=== PATIENT | female | born 1995 | race Caucasian/White ===

== ENCOUNTER 2017-03-10 20:28 | Emergency (ER) | payer MEDICAID, OTHER ==
[~2017-03-10] VITALS: Ht 172.7 cm; Wt 184.0 kg
[2017-03-10 20:50] VITALS: Ht 172.7 cm; Wt 184.0 kg
[2017-03-10] MEDS ORDERED: IBUPROFEN 600 MG TAB PO ONE (22:00)
--- NOTE | 2017-03-10 22:03 | ERD ---
ER Documentation Chief Complaint Date/Time DATE: 03/10/17 TIME: 22:02 Chief Complaint Right ankle pain x1 day, no fall HPI This is a 21-year-old female presents to the ER with right ankle pain that started 3 days ago when she stepped wrong onto her ankle while going down stairs. Patient states that now she has developed severe ankle pain is unable to walk on her foot. Pain is described as throbbing in quality, worse whenever she puts any weight on it or whenever she moves her ankle. She denies any numbness or tingling of the ankle. Patient has not taken any medication for the ankle pain however she did put on an ankle splint which did help with the pain. ROS 12 point review of systems was done, all negative except per HPI. Medications Home Meds Active Scripts Ibuprofen* (Motrin*) 600 Mg Tab, 600 MG PO Q6, #30 TAB Prov:CORNELIA GALARZA 03/10/17 Allergies Allergies: Coded Allergies: No Known Allergy (Unverified , 03/10/17) PMhx/Soc Medical and Surgical Hx: pt denies Medical Hx, pt denies Surgical Hx Hx Alcohol Use: No Hx Tobacco Use: No Smoking Status: Never smoker Physical Exam Vitals Vital Signs Date Time Temp Pulse Resp B/P Pulse Ox O2 Delivery O2 Flow Rate FiO2 03/10/17 20:50 99.4 97 20 151/74 98 Physical Exam GENERAL: The patient is well developed and appropriate for usual state of health , in no apparent distress. HEENT: Atraumatic CHEST: Clear to auscultation bilaterally. There are no rales, wheezes or rhonchi. HEART: Regular rate and rhythm. No murmurs, clicks, rubs or gallops. EXTREMITIES: Ankle-patient is not able to bear weight and ambulate without any pain. right ankle is without obvious asymmetry or deformity when compared to the right ankle. Patient can flex/ext, invert/janelle ankle. No obvious surface trauma, ecchymosis. bony tenderness to the lateral malleolus. Anterior talofibular ligament, posterior talofibular ligament, calcaneofibular ligament NT and without swelling. Not tender or deformity of the midfoot or over the proximal fifth metatarsal, good dorsalis pedis and posterior tibial pulses and sensation to light touch is normal. Talar tilt test is negative for ligament laxity to valgus or varus stress. Negative anterior drawer.. Peroneal nerve is intact with strong eversion and plantarflexion. Negative squeeze test. Knee: Full and non painful ROM, not TTP. NEURO: Alert and oriented SKIN: There is no apparent rash or petechia. The skin is warm and dry. Results 24 hrs Current Medications Medications (Trade) Dose Ordered Sig/Susana Route PRN Reason Start Time Stop Time Status Last Admin Dose Admin Ibuprofen (Motrin) 600 mg ONCE ONCE PO 03/10/17 22:00 03/10/17 22:01 DC 03/10/17 21:39 [place] [id number] Radiology Main Line: [phone] DIAGNOSTIC IMAGING REPORT Patient: DANIELA AMAYA : 1995 Age: 21 Sex: F MR #: [id number] DOS: 03/10/17 0000 Ordering MD: CORNELIA GALARZA. PA-C Location: [facility] Room/Bed: PROCEDURE: X-ray right ankle. CLINICAL INDICATION: Right ankle pain. TECHNIQUE: 3 views right ankle. COMPARISON: None FINDINGS: Mild soft tissue swelling over the bilateral ankle, greater medially. Small plantar calcaneal enthesophyte. No acute fracture. IMPRESSION: No acute fracture. RPTAT: [facility] Physician Litzy Date Time Electronically viewed and signed by Physician Litzy on 03/10/2017 23:22 RS/ CC: CORNELIA GALARZA Procedures/MDM Differential diagnosis includes but is not limited to ankle sprain, ankle fracture, Achilles tendon rupture, proximal fibula fracture, distal fibula avulsion fracture, bimalleolar or trimalleolar fracture, peroneal nerve injury, acute compartment syndrome. This is likely an ankle sprain there is no evidence of fracture dislocation on x-ray. Patient is neurovascularly intact and likely has pain secondary to sprain. Suspicion for acute compartment syndrome is low. Patient will be sent home with ibuprofen. She was told to continue using her ankle splint. Patient is to follow-up with her primary care doctor within 1-2 days or return to ER sooner if symptoms worsen. My medical decision making shared with the patient she understands and agrees with plan. Departure Diagnosis: Primary Impression: Ankle sprain Condition: Stable CORNELIA GALARZA Mar 10, 2017 22:03
--- NOTE | 2017-03-10 23:23 | RADRPT ---
PROCEDURE: X-ray right ankle. CLINICAL INDICATION: Right ankle pain. TECHNIQUE: 3 views right ankle. COMPARISON: None FINDINGS: Mild soft tissue swelling over the bilateral ankle, greater medially. Small plantar calcaneal enthe sophyte. No acute fracture. IMPRESSION: No acute fracture. RPTAT: [facility] Physician Litzy Date Time Electronically viewed and signed by Marcelino Hernandez Physician on 03/10/2017 23:22 RS/
[2017-03-10] MEDS ORDERED: IBUP-1542 PO (23:28)
== END 2017-03-10 23:33 | disposition home or self-care (01) ==
LOC: FTE 20:28
DX: S93.401A Sprain of unspecified ligament of right ankle, initial encounter (principal); W10.9XXA Fall (on) (from) unspecified stairs and steps, initial encounter; Y92.9 Unspecified place or not applicable
CPT/HCPCS: 73610; Z7502; Z7610